=== PATIENT | female | born 1995 | race Caucasian/White ===

== ENCOUNTER 2021-04-11 11:17 | Emergency (ER) | payer OTHER ==
[~2021-04-11] VITALS: Ht 162.6 cm; Wt 62.6 kg
[2021-04-11 11:22] VITALS: BP 128/87
--- NOTE | 2021-04-11 11:27 | NUR ---
Patient ambulated with steady gait to bed 2.
--- NOTE | 2021-04-11 11:46 | NUR ---
25/F presents to ED with c/o sore throat. Patient states she has had a worsening sore throat x4 days with no relief. Reports taking chloraseptic throat spray and cough drops with mild relief. Patient states yesterday she began having "head and eye pressure" and a nonproductive cough, states taking Ibuprofen once yesterday with no relief. Patient describes it as 7/10 sharp pain that worsens when talking or eating/drinking. Patient denies blurred vision, dizziness, alert and oriented x4, answering questions appropriately.
--- NOTE | 2021-04-11 12:12 | NUR ---
dejan Cano and flu swabs collected and walked to lab.
[2021-04-11] MEDS ORDERED: PRED20TA5 PO (12:35)
[2021-04-11] MEDS ORDERED: PHEN30SP10 MM (13:30)
[2021-04-11] MEDS ORDERED: PROM118S5 PO (13:30)
[2021-04-11 13:38] VITALS: BP 128/87
--- NOTE | 2021-04-11 13:39 | NUR ---
Patient discharged with v/s stable. Written and verbal after care instructions given and explained. Patient alert, oriented and verbalized understanding of instructions. Ambulatory with steady gait. All questions addressed prior to discharge. ID band removed. Patient advised to follow up with PMD. Rx of Chloraseptic spray and Promethazine Syrup given. Patient educated on indication of medication including possible reaction and side effects. Opportunity to ask questions provided and answered.
== END 2021-04-11 13:39 | disposition home or self-care (01) ==
LOC: MED 11:17
DX: B34.9 Viral infection, unspecified (principal); Z20.822 Contact with and (suspected) exposure to COVID-19; Z79.899 Other long term (current) drug therapy
CPT/HCPCS: 87426; 87804; 99283; U0003